=== PATIENT | female | born 1985 | race Caucasian/White ===

== ENCOUNTER → 2021-05-10 13:38 | Outpatient (BNVA) | payer BC, SELFPAY | PROVIDERS: Family Provider Nurse Practitioner Family; PCP Nurse Practitioner Family; Visit Provider Registered Nurse | DX: R07.9 Chest pain, unspecified (principal); R53.83 Other fatigue; R03.0 Elevated blood-pressure reading, without diagnosis of hypertension | CPT/HCPCS: 80053; 82607; 84443; 85025 ==

== ENCOUNTER 2021-07-05 12:06 | Outpatient (CLI) | payer BC, SELFPAY ==
--- NOTE | 2021-07-05 12:14 | XR_ITS ---
WS: [id number] Exam: XR KUB [id number] Date/Time of Exam: 07/05/2021 12:15 PM Reason For Exam: K21.9 - Gastro-esophageal reflux disease without esophagitis No bowel obstruction or free air. Visualized organ margins appear normal. Regional bony elements are intact. Unremarkable bowel gas pattern. XR/XR KUB [id number] IMPRESSION: 1. No acute abdominal finding.
== END 2021-07-05 12:07 | disposition home or self-care (01) ==
LOC: RAD 12:13
PROVIDERS: PCP Registered Nurse; Visit Provider Registered Nurse
DX: K21.9 Gastro-esophageal reflux disease without esophagitis (principal); R14.0 Abdominal distension (gaseous); R10.9 Unspecified abdominal pain
CPT/HCPCS: 74018

== ENCOUNTER 2021-07-15 08:43 | Outpatient (CLI) | payer BC, SELFPAY ==
--- NOTE | 2021-07-15 08:45 | US_ITS ---
WS: [id number] Complete ABDOMINAL ULTRASOUND HISTORY: K21.9 - Gastro-esophageal reflux disease without esophagitis COMPARISON: None available. Liver: 12.2 cm in length. Liver is normal size and echogenicity with no mass or intrahepatic dilatati on. Gallbladder: Normally distended with no gallstones, wall thickening or pericholecystic fluid. Gallbladder wall thickness: 0.2 cm. Pancreas: Normal size and echogenicity. CBD: 0.3 cm. Right kidney: 9.4 cm x 4.3 cm x 4.2 cm. No mass, cortical thickening or hydronephrosis. Left kidney: 10.6 cm x 4.7 cm x 4.2 cm. No mass, cortical thickening or hydronephrosis. Spleen: Normal size and echogenicity. Abdominal aorta and IVC are within normal limits. No ascites. US/US abdomen complete* [id number] IMPRESSION: Normal complete abdomen ultrasound.
== END 2021-07-15 08:44 | disposition home or self-care (01) ==
LOC: RAD 08:47
PROVIDERS: PCP Registered Nurse; Visit Provider Registered Nurse
DX: K21.9 Gastro-esophageal reflux disease without esophagitis (principal); R10.12 Left upper quadrant pain
CPT/HCPCS: 76700

== ENCOUNTER → 2021-08-05 11:30 | Outpatient (BNVA) | payer BC, SELFPAY | PROVIDERS: PCP Registered Nurse; Visit Provider Registered Nurse | DX: J30.89 Other allergic rhinitis (principal); M25.50 Pain in unspecified joint; J30.9 Allergic rhinitis, unspecified; M25.59 Pain in other specified joint | CPT/HCPCS: 85651; 86140; 86431 ==

== ENCOUNTER 2022-02-14 20:27 | Emergency (ER) | payer BC, SELFPAY ==
[2022-02-14 20:44] VITALS: BP 157/80; PULSE 93; RESP 18; TEMP 36.6; O2SAT 99; BMI 25.0
--- NOTE | 2022-02-14 21:30 | ED_ITS ---
HPI - Extremity Problem General: Chief complaint: Extremity Problem,Nontraumatic Stated complaint: high bp, right leg cramp, headache Time Seen by Provider: 02/14/22 21:29 History of Present Illness: 36-year-old female comes in today with complaints of right calf pain. Patient reports pain for the last 3 to 4 days. Patient does not recall any injury. Patient reports increased pain with weightbearing. Patient has no chronic medical conditions. Patient does report some generalized body aches at times which she is having investigated right now with primary care. Associated symptoms: Deny chest pain or rash Review of Systems General: Reports: 10 or more systems reviewed and unremarkable except in HPI and below Const: Reports: body aches Card: Denies: chest pain Resp: Denies: dyspnea GI: Denies: nausea or vomiting Musc: Reports: extremity pain Skin/Breast: Denies: rash PFSH ED PFSH: Medical History Chronic allergic rhinitis Social History Smoking and tobacco status: never smoked Alcohol intake: never Lives independently: No Household members: spouse Sexually active: Yes Current gender identity: Female Physical Exam Const: COMMON NORMALS: alert Neck/C-Spine: COMMON NORMALS: full ROM Resp: COMMON NORMALS: normal respiratory effort and clear to auscultation bilaterally AUSCULTATION: clear to auscultation bilaterally Cardio: COMMON NORMALS: regular rate and regular rhythm RATE: regular rate RHYTHM: regular rhythm Extremity: RIGHT LOWER EXTREMITY: Yes lower leg (Calf tenderness, minimal to no swelling, no vascular congestion) Right lower leg: Yes inspection, Yes palpation and Yes neurovascular exam Neuro: SENSORIUM/ORIENTATION: Yes alert Skin: COMMON NORMALS: no rashes or lesions noted GENERAL SKIN EXAM: no rashes or lesions noted Course Vital Signs: Vital signs: Vital Signs Temperature 97.8 F 02/14/22 20:44 Pulse Rate 93 02/14/22 20:44 Respiratory Rate 18 02/14/22 20:44 Blood Pressure 157/80 02/14/22 20:44 Pulse Oximetry 99 02/14/22 20:44 MDM - Extremity (Nontraumatic) Medical Decision Making Patient comes in tonight with complaints of right calf pain. On exam patient has a positive Homans' sign. No pain is noted in the posterior popliteal angle. Distal pulses and sensations are intact. Mild swelling is noted to the calf but no other significant swelling or edema is noted to the extremity. Differential diagnosis includes DVT, muscle strain, tendinitis, Julio's cyst. Ultrasound extremity was negative for any abnormality. CBC and CMP were unremarkable without any signs of electrolyte imbalance. Believe the patient probably has a muscle strain that will need gentle stretching and range of motion exercises to recover. Recommended Tylenol and ibuprofen for further pain relief. Lab Data : 02/14/22:02/14/22 Laboratory Results WBC 8.4 10^3/uL (4.0-10.0) 02/14/22 RBC 4.53 10^6/uL (4.1-5.3) 02/14/22: Hgb 13.7 g/dL (11.5-15.3) 02/14/22: Hct 41.6 % (37.0-47.0) 02/14/22 MCV 91.8 fl (81-99) 02/14/22: MCH 30.2 pg (28.0-34.0) 02/14/22: MCHC 32.9 g/dL (30.0-36.0) 02/14/22 RDW 12.7 % (12.1-15.1) 02/14/22: Plt Count 275 10^3/cmm (130-400) 02/14/22: MPV 10.4 fL (7.4-10.4) 02/14/22: Neut % (Auto) 63.3 % 02/14/22: Lymph % (Auto) 27.6 % 02/14/22: [place] % (Auto) 6.9 % 02/14/22: Eos % (Auto) 1.5 % 02/14/22 Baso % (Auto) 0.5 % 02/14/22 Neut # (Auto) 5.34 10^3/uL (1.8-7.7) 02/14/22: Lymph # (Auto) 2.3 10^3/uL (0.8-4.8) 02/14/22: [place] # (Auto) 0.6 10^3/uL (0.2-0.9) 02/14/22: Eos # (Auto) 0.1 10^3/uL (0.0-0.8) 02/14/22: Baso # (Auto) 0.0 10^3/uL (0.0-0.1) 02/14/22: Nucleated RBC % (auto) 0 % 02/14/22: Nucleated RBCs # 0.0 /100WBC 02/14/22: Sodium 141 mmol/L (136-145) 02/14/22: Potassium 4.4 mmol/L (3.5-5.1) 02/14/22: Chloride 107 mmol/L (98-107) 02/14/22: Carbon Dioxide 25 mmol/L (22-29) 02/14/22: Anion Gap 13.4 (5-19) 02/14/22: BUN 11 mg/dL (6-20) 02/14/22: Creatinine 0.8 mg/dL (0.5-0.9) 02/14/22: GFR Calculation 80.7 mL/min (90-130) L 02/14/22: Glucose 100 mg/dL (65-115) 02/14/22 Calculated Osmolality 291 mOsm/kg (285-295) 02/14/22: Calcium 9.5 mg/dL (8.5-10.5) 02/14/22: Total Bilirubin 0.2 mg/dL (0.15-1.2) 02/14/22: AST 17 U/L (0-32) 02/14/22: ALT 14 U/L (0-33) 02/14/22: Alkaline Phosphatase 58 IU/L (35-105) 02/14/22: Total Protein 6.6 g/dL (6.6-8.7) 02/14/22: Albumin 4.5 g/dL (3.5-5.2) 02/14/22: Globulin 2.1 g/dL (1.3-4.6) 02/14/22 22:28 Discharge Plan Discharge Patient Disposition: Home Clinical Impression: Pain of right calf Gastrocnemius strain Qualifiers: Encounter type: initial encounter Laterality: right Qualified Code(s): S86.111A - Strain of other muscle(s) and tendon(s) of posterior muscle group at lower leg level, right leg, initial encounter Condition: Stable Prescriptions: No Action triamcinolone acetonide [24 Hour Nasal Allergy] 55 mcg aerosol,spray 1 spray intranasal DAILY 0RF Rx Instructions: administer into each nostril magnesium hydroxide [Milk of Magnesia] 400 mg/5 mL suspension 10 ml PO DAILY PRN (Reason: stomach upset) 30 Days Qty: 3000 0RF montelukast [Singulair] 10 mg tablet 10 mg PO DAILY Qty: 90 0RF levocetirizine [Xyzal] 5 mg tablet 5 mg PO DAILY Qty: 90 0RF pantoprazole 40 mg tablet,delayed release (DR/EC) See Rx Instructions .ROUTE .COMPLEX Qty: 30 0RF Dose Instruction: TAKE 1 TABLET BY MOUTH ONCE DAILY ON AN EMPTY STOMACH Rx Instructions: TAKE 1 TABLET BY MOUTH ONCE DAILY ON AN EMPTY STOMACH Discharge Orders: Discharge ED (Routine); Ordered 02/15/22 Ordered By: Ibrahima Gusman Referrals: Divya Saunders FNP [Primary Care Provider] - Discharge Diet: Usual diet Discharge Activity: Increase activity as tolerated Patient Instructions: Musculoskeletal Pain (ED) Activity Restrictions/Additional Instructions: Drink plenty of water. Gentle stretching and range of motion exercises of the extremity. Follow-up with primary care for further instruction. Coding Level of Care Code ED [employer] Maker Hand for Jerry Fwfrancine Exam Detailed
[2022-02-14 22:34] LABS: Basophils % 0.5 %; Eosinophils # 0.1 10^3/uL (0.0-0.8); Eosinophils % 1.5 %; Hematocrit 41.6 % (37.0-47.0); Hemoglobin 13.7 g/dL (11.5-15.3); Lymphocytes # 2.3 10^3/uL (0.8-4.8); Lymphocytes % 27.6 %; Mean Corpuscular HGB Conc 32.9 g/dL (30.0-36.0); Mean Corpuscular Hemoglobin 30.2 pg (28.0-34.0); Mean Corpuscular Volume 91.8 fl (81-99); Mean Platelet Volume 10.4 fL (7.4-10.4); Monocytes # 0.6 10^3/uL (0.2-0.9); Monocytes % 6.9 %; Neutrophils # 5.34 10^3/uL (1.8-7.7); Neutrophils % 63.3 %; Nucleated Red Blood Cells % 0 %; Platelet Count 275 10^3/cmm (130-400); Red Blood Count 4.53 10^6/uL (4.1-5.3); Red Cell Distribution Width 12.7 % (12.1-15.1); White Blood Count 8.4 10^3/uL (4.0-10.0)
[2022-02-14 22:54] LABS: Alanine Aminotransferase 14 U/L (0-33); Albumin Level 4.5 g/dL (3.5-5.2); Alkaline Phosphatase 58 IU/L (35-105); Anion Gap 13.4 (5-19); Aspartate Amino Transferase 17 U/L (0-32); Blood Urea Nitrogen 11 mg/dL (6-20); Calcium 9.5 mg/dL (8.5-10.5); Carbon Dioxide 25 mmol/L (22-29); Chloride 107 mmol/L (98-107); Creatinine Clr Calc Pharmacy 100.3025; Globulin 2.1 g/dL (1.3-4.6); Glomerular Filtration Rate 80.7 mL/min (90-130); Glucose 100 mg/dL (65-115); Osmolality Calculated 291 mOsm/kg (285-295); Potassium 4.4 mmol/L (3.5-5.1); Sodium 141 mmol/L (136-145); Total Bilirubin 0.2 mg/dL (0.15-1.2); Total Protein 6.6 g/dL (6.6-8.7)
--- NOTE | 2022-02-15 01:08 | USR_ITS ---
PROCEDURE INFORMATION: Exam: US Duplex Right Lower Extremity Veins, Limited Exam date and time: 02/15/2022 1:10 AM Age: 36 years old Clinical indication: Pain; Leg, lower; Right; Additional info: Calf pain, R/O dvt TECHNIQUE: Imaging protocol: Real-time Duplex ultrasound of the Right Lower Extremity with 2-D barba scale, color Doppler flow and spectral waveform analysis with image documentation. Limited exam was focused on the right lower extremity veins. COMPARISON: No relevant prior studies available. FINDINGS: Evaluated veins include the right common femoral, proximal profunda femoral, proximal/mid/distal superficial femoral, popliteal, posterior tibial, peroneal, and proximal greater saphenous veins. No visible clot in the included veins. The included veins appear normally compressible. Duplex Doppler evaluation demonstrates flow in the evaluated veins. US/[place] [id number] IMPRESSION: No evidence of acute right lower extremity DVT.
[2022-02-15 01:51] VITALS: BP 128/87; PULSE 80; RESP 18; O2SAT 98
== END 2022-02-15 01:52 | disposition home or self-care (01) ==
PROVIDERS: Emergency Provider Nurse Practitioner Family; PCP Registered Nurse
DX: S86.111A Strain of other muscle(s) and tendon(s) of posterior muscle group at lower leg level, right leg, initial encounter (principal); X58.XXXA Exposure to other specified factors, initial encounter
CPT/HCPCS: 80053; 85025; 93971; 99282

== ENCOUNTER 2022-06-23 09:58 | Outpatient (CLI) | payer BC, SELFPAY ==
--- NOTE | 2022-06-23 10:35 | FL_ITS ---
WS: [id number] FL upper GI w air* [id number] REASON FOR EXAM: COLICKY LUQ PAIN FLUOROSCOPY TIME: 2min [id number] # OF SPOT FILMS: 10 TECHNIQUE: Patient was evaluated in the upright, prone KUO, supine, and supine LPO positions. Barium column was evaluated from the cervical esophagus to the ligament of Treitz. FINDINGS: Normal peristalsis in the esophagus with no extrinsic or intrinsic mass effect. There is a small sliding hiatal hernia with nonobstructive Schatzki ring. No significant reflux was e licited. Stomach was of normal size and contour and demonstrated a normal mucosal pattern. There was normal pa ssage of barium through the antrum, pylorus, duodenal bulb and into the duodenal sweep and into the d istal small bowel. FL/FL upper GI w air* [id number] IMPRESSION: Small sliding hiatal hernia. The examination is otherwise unremarkable.
== END 2022-06-23 09:59 | disposition home or self-care (01) ==
PROVIDERS: PCP Registered Nurse; Visit Provider Surgery
DX: R14.0 Abdominal distension (gaseous) (principal); K44.9 Diaphragmatic hernia without obstruction or gangrene
CPT/HCPCS: 74246

== ENCOUNTER 2022-07-11 09:58 | Outpatient (CLI) | payer BC, SELFPAY ==
--- NOTE | 2022-07-11 10:00 | NM_ITS ---
WS: [id number] NUCLEAR MEDICINE HIDA SCAN CLINICAL INFORMATION: left upper quadrant pain TECHNIQUE: Following intravenous administration of 7.2 mCi of technetium 99m mebrofenin, images of th e abdomen were obtained over the course of 60 minutes. Next, gallbladder ejection fraction was determ ined by obtaining preprandial and one-hour postprandial images of the gallbladder following oral valente stion of Ensure. COMPARISON: None. FINDINGS: Normal hepatic uptake at 5 minutes. Gallbladder is visualized by 15 minutes. No evidence of acute cho lecystitis. Normal small bowel and common bile duct activity. Normal hepatic excretion. Gallbladder ejection fraction 81% within normal limits. No evidence of chronic cholecystitis. NM/NM hepatobiliary w phar* [id number] IMPRESSION: 1. No evidence of acute or chronic cholecystitis. 2. Gallbladder ejection fraction 81% within normal limits.
== END 2022-07-11 09:59 | disposition home or self-care (01) ==
LOC: RAD 09:59
PROVIDERS: PCP Registered Nurse; Visit Provider Surgery
DX: R10.12 Left upper quadrant pain (principal)
CPT/HCPCS: 78227; A9537

== ENCOUNTER 2022-09-22 08:00 | Day surgery (SDC) | payer BC, SELFPAY ==
[2022-09-20 12:54] VITALS: BMI 25.0
[2022-09-22 08:19] VITALS: BP 152/85; PULSE 84; RESP 18; TEMP 36.1; O2SAT 98
[2022-09-22] MEDS: sodium chloride 0.9% 1,000 ML 30 ML IV (08:30)
--- NOTE | 2022-09-22 08:44 | P.HP_ITS ---
Same Day Surgery H&P Indication for Procedure/HPI DATE OF PROCEDURE: September 22, 2022 CHIEF COMPLAINT/INDICATIONFOR SURGICAL PROCEDURE: Abdominal pain PREOP DIAGNOSIS: Abdominal pain PLANNED PROCEDURE: Operation Date: 09/22/22 09:30 Proposed Procedures p : 22727 EGD. 39591 Colon K44.9,R14,R10.12 LUQ, K21.9(Not Applicable) - Neil Moseley MD s Colonoscopy(Not Applicable) - Neil Moseley MD 07/26/2021 This is a pleasant 36 years old female patient referred to my practice with history of left-sided abdominal pain particularly in the left upper quadrant and epigastric area, being sharp and colicky in nature gets worse with any type of food and gets better by stretching laying down, associated with nausea and not being referred to any other spot.? Has been going on for the past 2 months or so she has had bloating issues as well.? She reports that she has been having regular bowel movements and denies weight loss or history of colon cancer.? Get a KUB that was done and showed no acute findings yet to my interpretation patient does have a load of stool particularly on the right side of the colon.? Patient was placed on mag citrate on weekly basis to help improve her bowel movements.? Also she had an ultrasound of the abdomen was reported as normal. Patient never had endoscopies before. 03/02/2022 Patient comes today and continues to complain of left-sided abdominal pain associated with bloating.? She was supposed to get her EGD and colonoscopy but that got postponed because of COVID 19.? Patient also complaining of some throat discomfort and she was seen and evaluated by ENT service but it does not seem that there was a specific pathology.? Patient reports that she still have her gallbladder and she does give some symptoms related to potential underlying gallbladder dysfunction.? She had an abdominal ultrasound that showed normal findings.? Of the liver and gallbladder. Interim history 07/20/2022 Patient comes today for follow-up and she did undergo a HIDA scan per my recommendation and she denied any nausea, vomiting or bloating or abdominal pain associated with HIDA scan.?She continues to report left upper quadrant abdominal pain that has been sharp whenever she eats and gets better when she does not eat patient has been constantly hurting for the most part..? She was supposed to get scheduled for an EGD and colonoscopy but unfortunately her insurance denied the EGD and subsequently I did send the patient for an upper GI study that did show Small hiatal hernia with small nonobstructive Schatzki's ring otherwise unremarkable study. Patient reports overall the bloating is less but she continues to have pain at the left upper quadrant. Interim history 09/22/2022 Patient comes today for diagnostic EGD and colonoscopy ROS All systems have been reviewed negative except as for the above or per problem list. Medications/Allergies* Home Medications Medication Instructions Recorded Confirmed Type triamcinolone acetonide 55 mcg 1 spray intranasal DAILY 11/26/20 09/22/22 History nasal spray aerosol (24 Hour Nasal Allergy) ibuprofen 400 mg tablet 400 mg PO Q6H PRN Pain 09/22/22 09/22/22 History Allergies/Adverse Reactions Allergy/AdvReac Type Severity Reaction Status Date / Time No Known Allergies Allergy Verified 09/22/22 08:45 Current Medications: Generic Name Dose Route Start Last Admin Trade Name Freq PRN Reason Stop Dose Admin Sodium Chloride 1,000 mls @ 30 mls/hr 09/22/22 08:15 09/22/22 08:30 Sodium Chloride 0.9% IV 09/23/22 08:14 30 mls/hr .Q24H DELISA Administration Pertinent History/Comorbid Conditions* Medical History (Updated 07/20/22 @ 09:20 by Neil Moseley MD) Chronic allergic rhinitis Family History (Updated 07/20/22 @ 08:50 by Mely Berrios MA) Hypertension Social History Smoking and tobacco status: never smoked Alcohol intake: never Lives independently: No Household members: spouse Sexually active: Yes Current gender identity: Female Pertinent Exam Findings alert, oriented x 3, regular rate & rhythm and procedure specific exam findings (Abdominal exam nontender nondistended soft) Recommendations Surgery/Procedure today (EGD and colonoscopy with possible biopsy) Coding Level of Care Code Acute Signal Circuit Designer for Jerry Ordonez
[2022-09-22] MEDS: ondansetron 2 mg/ML SDV 2 mL 4 MG IVP (08:55)
--- NOTE | 2022-09-22 09:00 | ANES.PREANE2 ---
Pre-Anesthetic Assessment Height/Weight: Height 1.7 m Weight 72.575 kg Temp Pulse Resp BP Pulse Ox O2 Del Method 97 F L 84 18 152/85 98 09/22/22 08:19 09/22/22 08:19 09/22/22 08:19 09/22/22 08:19 09/22/22 08:19 09/22/22 08:19 Preop Diagnosis: Abdominal pain Operation Date: 09/22/22 09:30 Proposed Procedures p : [id number] EGD. 73634 Colon K44.9,R14,R10.12 LUQ, K21.9(Not Applicable) - Neil Moseley MD s Colonoscopy(Not Applicable) - Neil Moseley MD Was Beta Elian taken within 24 hours: N/A Was Clonidine taken within 24 hours: N/A Last intake: Intake Last Liquid Date 09/21/22 Last Liquid Time 21:30 Last Solid Date 09/20/22 Last Solid Time 18:00 Social No alcohol and No tobacco Exam alert, oriented x 3, clear to auscultation bilaterally and regular rate & rhythm Airway Submandibular: within normal limits Cervical ROM: within normal limits Mallampati: Class II Dentition: full History/ROS No significant history except as noted and No significant complaints Pulmonary Allergic rhinitis CV/HEM None reported None reported Hepatic None reported GI Nauseated. vomited on way to hospital. Treated and pt states better now Metabolic None reported Musc/skel None reported Neuropsych Headache Anesthetic Plan ASA status: 2 Anesthesia: Anesthesia Evaluation and MAC Risk of > 500 ml blood loss (7ml/kg in children): No Medications/Allergies Home Medications Medication Instructions Recorded Confirmed Last Taken Type montelukast 10 mg tablet 10 mg PO DAILY #90 tabs 02/13/20 09/22/22 Unknown Rx (Singulair) triamcinolone acetonide 55 mcg 1 spray intranasal DAILY 11/26/20 09/22/22 Unknown History nasal spray aerosol (24 Hour Nasal Allergy) levocetirizine 5 mg tablet (Xyzal) 5 mg PO DAILY #90 tabs 03/16/21 09/22/22 Unknown Rx magnesium hydroxide 400 mg/5 mL 10 ml PO DAILY PRN stomach upset 06/25/21 09/22/22 Unknown Rx oral suspension (Milk of Magnesia) 30 days #3,000 mL pantoprazole 40 mg tablet,delayed See Rx Instructions .Route 12/20/21 09/22/22 Unknown Rx release .COMPLEX #30 tabs baclofen 10 mg tablet 10 mg PO DAILY PRN muscle spasm 02/21/22 09/22/22 Unknown Rx #30 tabs peg 3350-electrolytes 236 240 ml PO Q10M #4,000 mL 07/20/22 09/22/22 09/21/22 Rx gram-22.74 gram-6.74 gram-5.86 gram solution (Golytely) ibuprofen 400 mg tablet 400 mg PO Q6H PRN Pain 09/22/22 09/22/22 09/14/22 History Allergies Allergy/AdvReac Type Severity Reaction Status Date / Time No Known Allergies Allergy Verified 09/22/22 08:45 Current Medications Generic Name Dose Route Start Last Admin Trade Name Freq PRN Reason Stop Dose Admin Sodium Chloride 1,000 mls @ 30 mls/hr 09/22/22 08:15 09/22/22 08:30 Sodium Chloride 0.9% IV 09/23/22 08:14 30 mls/hr .Q24H DELISA Administration Ondansetron HCl 4 mg 09/22/22 08:07 09/22/22 08:55 Ondansetron 2 Mg/Ml Sdv 2 Ml IVP 4 mg Q5M PRN Administration NAUSEA AND VOMITING PFSH Anesthesia Medical History Chronic allergic rhinitis Family History Other Hypertension Social History Smoking and tobacco status: never smoked Alcohol intake: never Lives independently: No Household members: spouse Sexually active: Yes Current gender identity: Female Female Reproductive History Date of last menstrual period: 09/13/22 Data Anesthesia Cardiac Studies: No Data to Display
[2022-09-22 10:09] VITALS: BP 124/72; PULSE 77; RESP 18; TEMP 36.3; O2SAT 96
[2022-09-22 10:15] VITALS: BP 124/83; PULSE 74; RESP 18; O2SAT 95
[2022-09-22 10:24] VITALS: BP 138/84; PULSE 77; RESP 18; O2SAT 97
--- NOTE | 2022-09-22 15:20 | ANE.PACU2 ---
Inpatient post-anesthesia follow up: Airway intact: Yes Vital signs: Temperature 97.4 F Pulse Rate 77 Respiratory Rate 18 Blood Pressure 138/84 Pulse Oximetry 97 Oxygen Delivery Me thod Room Air Oxygen Flow Rate Fraction of Inspir ed Oxygen Hydration adequate: Yes Nausea and vomiting: No Pain level: 1 Mental status: Baseline
[2022-09-23 06:46] LABS: OR HCG Qualitative Urine Negative (Negative)
== END 2022-09-22 10:50 | disposition home or self-care (01) ==
PROVIDERS: Anesthesiology; PCP Registered Nurse; Visit Provider Surgery
PROC: 0DJ08ZZ Inspection of Upper Intestinal Tract, Via Natural or Artificial Opening Endoscopic (ICD-10-PCS; CPT 43235; principal; 2022-09-22 09:30)
PROC: 0DJD8ZZ Inspection of Lower Intestinal Tract, Via Natural or Artificial Opening Endoscopic (ICD-10-PCS; CPT 45378; 2022-09-22 09:30)
DX: R10.12 Left upper quadrant pain (principal); K21.00 Gastro-esophageal reflux disease with esophagitis, without bleeding; K29.70 Gastritis, unspecified, without bleeding; K62.1 Rectal polyp; Q27.30 Arteriovenous malformation, site unspecified; K57.30 Diverticulosis of large intestine without perforation or abscess without bleeding
CPT/HCPCS: 43239; 45380; 84703; 88305; 96374; J1100; J1200; J2405; J2704; J7030

== ENCOUNTER → 2023-09-25 11:19 | Outpatient (BNVA) | payer BC, SELFPAY | PROVIDERS: PCP Registered Nurse; Visit Provider Registered Nurse | DX: R10.2 Pelvic and perineal pain (principal); Z01.419 Encounter for gynecological examination (general) (routine) without abnormal findings | CPT/HCPCS: 81000; 87624 ==

== ENCOUNTER → 2024-02-15 15:39 | Outpatient (BNVA) | payer BC, SELFPAY | PROVIDERS: PCP Registered Nurse; Visit Provider Registered Nurse | DX: I10 Essential (primary) hypertension (principal); F43.9 Reaction to severe stress, unspecified; R07.9 Chest pain, unspecified | CPT/HCPCS: 93005 ==

== ENCOUNTER → 2024-09-22 15:47 | Outpatient (BNVA) | payer BC, SELFPAY | PROVIDERS: PCP Registered Nurse; Visit Provider Emergency Medicine | DX: R39.9 Unspecified symptoms and signs involving the genitourinary system (principal) | CPT/HCPCS: 81000 ==